=== PATIENT | male | born 1960 | race Caucasian/White ===

== ENCOUNTER 2017-10-03 11:03 | Emergency (ER) | payer MEDICAID ==
[~2017-10-03] VITALS: Ht 172.7 cm; Wt 79.4 kg
[2017-10-03 11:41] VITALS: BP 140/91
[2017-10-03] MEDS ORDERED: PERMETHRIN 5% CREAM 60GM TOP ONE (11:45)
== END 2017-10-03 13:08 | disposition home or self-care (01) ==
LOC: ER 11:03
DX: B86 Scabies (principal); J45.909 Unspecified asthma, uncomplicated; F17.200 Nicotine dependence, unspecified, uncomplicated; Z88.6 Allergy status to analgesic agent
CPT/HCPCS: 99282